=== PATIENT | male | born 1960 | race Caucasian/White ===

== ENCOUNTER 2024-11-02 22:56 | Emergency (ER) | payer MEDICAID | END 2024-11-02 23:57 | disposition home or self-care (01) | LOC: JP.ED 22:56 | DX: L03.115 Cellulitis of right lower limb (principal); I10 Essential (primary) hypertension; E78.00 Pure hypercholesterolemia, unspecified; E11.9 Type 2 diabetes mellitus without complications; Z79.899 Other long term (current) drug therapy | CPT/HCPCS: 99282; 99283 ==

== ENCOUNTER 2025-09-26 11:47 | Emergency (ER) | payer MEDICAID ==
[2025-09-26 13:28] LABS: BLOOD UREA NITROGEN,BUN 5.0 mg/dL (7-18); CARBON DIOXIDE,CO2 32.0 mmol/L (21-32); CHLORIDE,CL 102.0 mmol/L (100-108); CREATININE 0.7 mg/dL (0.8-1.3); EST CRCL DRUG DOSING (CG) 96.21 mL/min; ESTIMATED GFR 103.0 mL/min (>60); GLUCOSE RANDOM 93.0 mg/dL (74-106); POTASSIUM,K 4.2 mmol/L (3.6-5.2); PRO B-TYPE NATRIUR PEPT,BNPPRO 359.0 pg/mL (5-125); SODIUM,NA 140.0 mmol/L (140-148)
== END 2025-09-26 14:01 | disposition home or self-care (01) ==
LOC: JP.ED 11:47
DX: I11.0 Hypertensive heart disease with heart failure (principal); I50.9 Heart failure, unspecified; I25.2 Old myocardial infarction; E78.00 Pure hypercholesterolemia, unspecified; E11.9 Type 2 diabetes mellitus without complications; Z79.899 Other long term (current) drug therapy
CPT/HCPCS: 36415; 80048; 83880; 99283; A9270